=== PATIENT | female | born 1940 | race Caucasian/White ===

== ENCOUNTER → 2018-01-18 15:06 | Outpatient (CLI) | payer MEDICARE, MEDICAID, SELFPAY ==
[2018-01-18 17:50] LABS: Free T4 (Free Thyroxine) 1.14 ng/dl (0.76-1.46); Thyroid Stimulating Hormone 1.21 uIU/ml (0.358-3.740)
[2018-01-20 13:43] LABS: Thyroid Peroxidase Antibodies 10 IU/mL (0-34)
== END ==
PROVIDERS: Visit Provider Otolaryngology
DX: E07.9 Disorder of thyroid, unspecified (principal)
CPT/HCPCS: 36415; 84439; 84443; 86376

== ENCOUNTER → 2018-10-26 10:20 | Outpatient (CLI) | payer MEDICARE, MEDICAID, SELFPAY ==
[2018-10-27 16:54] LABS: Parathyroid Hormone Intact 52 pg/mL (15-65)
[2018-10-30 14:27] LABS: Calcium, Ionized 5.7 mg/dL (4.5-5.6)
== END ==
PROVIDERS: PCP Physician Assistant; Visit Provider Physician Assistant
DX: E83.52 Hypercalcemia (principal)
CPT/HCPCS: 36415; 82330; 83970

== ENCOUNTER → 2021-02-12 07:56 | Outpatient (POV) | payer MEDICARE, MEDICAID, SELFPAY ==
[2021-02-12 08:35] VITALS: BP 160/73; PULSE 75; RESP 18; O2SAT 97; BMI 22.4
--- NOTE | 2021-02-12 09:14 | HMH.PMCON ---
Assessment and Plan (1) Shingles Status: Acute Category: Medical Code(s): B02.9 - Zoster without complications (2) Postherpetic neuralgia Status: Acute Category: Medical Code(s): B02.29 - Other postherpetic nervous system involvement - Assessment and plan all Dx Assessment and Plan for all problems:: Patient was discussed with Dr. Jimenez. Given the patient's symptoms of burning and itching to the area, he would like to proceed with a right occipital nerve block. If she gets relief we will then proceed to the left side. Patient is not on any anticoagulation therapy We will see her back after the injection for further evaluation. Patient has been instructed to contact the clinic with any concerns before the next appointment. Dr. Jimenez has reviewed this note and agrees with this plan of care. This note was dictated using voice recognition software and make contain errors or omissions. HPI - Data of Consult Patient: new to practice Consult date: 02/12/21 Requesting Physician: Nathaly Metcalf APRN - Consult Narrative Reason for consult: Shingles, pain to scalp History of present illness: Ms. Valles is a 81 year old female who presents today for consultation for postherpetic neuralgia. The patient is having burning sensation as well as itching in her neck and scalp area. She has had shingles in the past. She has also had a shingles vaccination with only 1 injection in the past. She says she has had shingles more than once. Most notably, she did have an outbreak following her most recent Covid vaccination. She says shortly after she began to have significant pain in her head as well as in her neck area. She has pain on both sides, however, the pain is worse at this time on the right side. Does say that she has a history of migraines and says that following the coexpressing she also developed significant migraines. The patient has tried gabapentin in the past which caused severe vomiting as well as Lyrica which also caused severe vomiting she has tried hydroxyzine for itching in the past which did not help. Patient is very sensitive to oral medications and does not tolerate oral medicine very well. She is not interested in taking any type of oral medications at this time. Patient does not have a rash today, she says she only has residual pain from the previous breakout. She does report to have chronic neck pain as well due to bulging disks. Today, the patient's pain is a 4 or 5 out of 10. CC: Nathaly Metcalf APRN [facility] History I have reviewed the patient's past medical history: Yes Medical History: Reports:: Gastroesophageal Reflux Disease(GERD), Gastrointestinal Bleed, Hypertension *Have you ever received a pneumonia vaccine?: No *Have you received a flu vaccine this season?: No Other Medical History: Reports: Arthritis Laterality Cases: Bilateral: Other Other Surgeries: Yes: Hysterectomy-Total - *Social History Smoking Status: Never smoker Alcohol Intake: never Substance Use Type: denies use *Occupational Status:: unemployed *Travel in the last 8 weeks: None Family Hx:: Hypertension, Hyperlipidemia, Cancer, Heart Attack, Stroke, Coronary Artery Disease Review of Systems - Review of Systems Review of Systems General: No recent weight changes, no fever, no sleep disturbances Respiratory: No cough, no shortness of air, no recurring pulmonary infections Cardiovascular/peripheral vascular: No chest pain, no palpitations, no edema, no shortness of breath Gastrointestinal: No new onset incontinence, normal bowel movements reported Genitourinary: No new onset incontinence Musculoskeletal: Neck pain, scalp pain worse to right side Psychiatric: [Normal mood/affect] Neurological: [Denies weakness in extremities], [denies balance issues] Meds Home Medications Medication Instructions Recorded Confirmed Type metoprolol succinate 25 mg 25 mg PO DAILY 90 Days 07/06/17 12/14/18 History tablet,e
== END ==
PROVIDERS: Visit Provider Clinical Nurse Specialist Family Health
DX: B02.29 Other postherpetic nervous system involvement (principal)
CPT/HCPCS: 99202; G0463

== ENCOUNTER 2021-02-20 12:26 | Day surgery (SDC) | payer MEDICARE, MEDICAID, SELFPAY ==
[2021-02-20 12:36] VITALS: BP 176/75; PULSE 74; RESP 20; TEMP 36.3; O2SAT 96; BMI 22.2
[2021-02-20 12:52] VITALS: BP 183/88; PULSE 79; RESP 20; O2SAT 97
[2021-02-20 12:55] VITALS: BP 183/85; PULSE 72; RESP 20; O2SAT 95
--- NOTE | 2021-02-20 12:59 | P.PCN_ITS ---
- Procedure Date: 02/20/21 Time: 13:00 Anesthesiologist:: Kathrine Brandon MD Complications:: None Pre-procedure Diagnosis:: Bilateral occipital neuralgia, chronic headaches Post-procedure Diagnosis:: Same Indications for Procedure:: Patient is a very pleasant 81-year-old white female who presents today with chronic headaches related to the above diagnosis. She has tried and failed cons ervative treatment including oral pain medications and home stretching program greater than 6 weeks. The plan for today is for the patient to undergo bilateral occipital nerve block injections. Procedure Details:: Bilateral occipital nerve block Informed consent was obtained and the risk and benefits of the procedure was explained to the patient. The patient was taken to the procedure room. The occiput was cleansed using ChloraPrep. A 25-gauge needle was used first on the left side and advanced until it contacted the left occiput. After negative aspiration we injected 5 mL bupivacaine 0.25% Depo-Medrol 40 mg. The same was done for the right side again advancing a 25-gauge needle until it contacted occiput. After negative aspiration, we injected 5 mL bupivacaine 0.25% and Depo-Medrol 40 mg. Patient tolerated procedure well with no complications. Plan and Disposition:: We will follow-up with this patient in 2 weeks. Will reevaluate pain symptoms at that time.
[2021-02-20 13:03] VITALS: BP 169/79; PULSE 69; RESP 20; O2SAT 95
== END 2021-02-20 13:06 | disposition home or self-care (01) ==
LOC: SC.PAINP 12:30
PROVIDERS: PCP Family Medicine; Visit Provider Anesthesiology Pain Medicine
DX: M54.81 Occipital neuralgia (principal); B02.9 Zoster without complications; I10 Essential (primary) hypertension; K21.9 Gastro-esophageal reflux disease without esophagitis; Z88.6 Allergy status to analgesic agent; Z88.1 Allergy status to other antibiotic agents; Z88.8 Allergy status to other drugs, medicaments and biological substances
CPT/HCPCS: 64450; J1040

== ENCOUNTER → 2021-03-23 09:37 | Outpatient (POV) | payer MEDICARE, MEDICAID, SELFPAY ==
[2021-03-23 10:07] VITALS: BP 146/78; PULSE 67; RESP 20; TEMP 36.6; O2SAT 97; BMI 22.2
--- NOTE | 2021-03-23 10:33 | P.CONS_ITS ---
[facility] Pain Management SOAP Note Subjective:: She is a very pleasant 81-year-old white female who presents today for follow- up. She is currently being treated for chronic headaches related to bilateral occipital neuralgia. She has previously undergone bilateral occipital nerve block injections on February 20, 2021 and notes 100% pain relief in her pain symptoms since undergoing this injection. Today she notes that she has been experiencing some itching over the site of her previous postherpetic lesions the back of her head. She was prescribed clobetasol cream to apply at bedtime which she states is helping with the itching. She is very satisfied with the results from the above injection. She rates her pain today as a 0 out of 10. Objective:: General: Alert and oriented x3, no acute distress, pleasant and cooperative Lungs: Resps E/U, symmetric chest expansion Eyes: PERRL Musculoskeletal: No tenderness to palpation over the bilateral occipital nerve distribution in the posterior aspect of her head. 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 Since she has experienced significant pain relief after undergoing the previous bilateral occipital nerve block injections, I discussed with the patient that we will closely under her symptoms and should the pain recur for any reason we may consider performing repeat injections in the future. We will follow-up with this patient in 4 weeks for reassessment of her chronic pain symptoms. [facility] #[id number] and prior drug screens were reviewed and appropriate. [facility] History Medical History: Reports:: Gastroesophageal Reflux Disease(GERD), Gastrointestinal Bleed, Hyperlipidemia, Hypertension Denies:: Cancer, Diabetes Mellitus Type 2 *Have you ever received a pneumonia vaccine?: Yes *Have you received a flu vaccine this season?: No Other Medical History: Reports: Arthritis, Hypothyroidism Laterality Cases: Bilateral: Arthroscopy Shoulder, Other Other Surgeries: Yes: Appendectomy, Cholecystectomy, Hysterectomy-Total - *Social History Smoking Status: Never smoker Alcohol Intake: never Substance Use Type: denies use *Occupational Status:: retired *Travel in the last 8 weeks: None Family Hx:: Other
== END ==
PROVIDERS: Visit Provider Anesthesiology Pain Medicine
DX: B02.23 Postherpetic polyneuropathy (principal); M54.81 Occipital neuralgia
CPT/HCPCS: 99212; G0463

== ENCOUNTER → 2021-04-20 09:59 | Outpatient (POV) | payer MEDICARE, MEDICAID, SELFPAY ==
[2021-04-20 10:20] VITALS: BP 154/65; PULSE 63; RESP 20; TEMP 35.9; O2SAT 96; BMI 23.2
--- NOTE | 2021-04-20 10:33 | P.CONS_ITS ---
[facility] Pain Management SOAP Note Subjective:: Is a very pleasant 81-year-old white female that presents today for follow-up regarding her postherpetic neuralgia in her scalp. She has had bilateral occipital nerve blocks in the past with significant improvement. However, she is complaining of scalp pain returning to some degree. However not near as bad as it was prior. Patient rates the scalp pain 5/10 at times. She is using a clobetasol 0.05% solution that seems to give her some significant relief. Also, she is requesting repeat injections of the bilateral occipital nerves. I think this would be appropriate. We will call him the clobetasol for refill. Objective:: Is awake alert oriented x3. In no acute distress. Flexion and extension of the cervical spine normal. Range of motion cervical spine normal. Slight tenderness to palpation over the bilateral supple nerve distribution in the posterior aspects of her head. No motor deficit. Gait is normal. Assessment:: Herpes zoster resulting in postherpetic neuralgia and postherpetic polyneuropathy bilateral occipital neuralgia. Plan:: Repeat bilateral occipital nerve block. Refill clobetasol 0.05% solution. We will give her 3 refills. [facility] History Medical History: Reports:: Gastroesophageal Reflux Disease(GERD), Gastrointestinal Bleed, Hyperlipidemia, Hypertension Denies:: Cancer, Diabetes Mellitus Type 2 *Have you ever received a pneumonia vaccine?: Yes *Have you received a flu vaccine this season?: No Other Medical History: Reports: Arthritis, Hypothyroidism Laterality Cases: Bilateral: Arthroscopy Shoulder, Other Other Surgeries: Yes: Appendectomy, Cholecystectomy, Hysterectomy-Total - *Social History Smoking Status: Never smoker Alcohol Intake: never Substance Use Type: denies use *Occupational Status:: retired *Travel in the last 8 weeks: None Family Hx:: Other
== END ==
PROVIDERS: Visit Provider Nurse Anesthetist, Certified Registered
DX: B02.29 Other postherpetic nervous system involvement; M54.81 Occipital neuralgia
CPT/HCPCS: 99212; G0463

== ENCOUNTER 2021-04-24 09:57 | Day surgery (SDC) | payer MEDICARE, MEDICAID, SELFPAY ==
[2021-04-24 10:01] VITALS: BP 126/60; BP 134/64; BP 136/67; BP 153/58; PULSE 77; PULSE 82; PULSE 88; RESP 20; TEMP 36.5; O2SAT 96; BMI 23.2
--- NOTE | 2021-04-24 10:43 | HMH.PMPROC ---
- Procedure Date: 04/24/21 Time: 10:43 Anesthesiologist:: Mike Jimenez MD Complications:: None Pre-procedure Diagnosis:: Bilateral occipital neuralgia Post-procedure Diagnosis:: Same Indications for Procedure:: Patient is a pleasant 81-year-old white female who we are treating for bilateral occipital neuralgia. She is done well with these blocks in the past. Pain is starting to return. We will do repeat bilateral occipital nerve blocks today to see if this helps with her pain symptoms that are returning. Procedure Details:: Bilateral occipital nerve block Informed consent was obtained and the risk and benefits of the procedure was explained to the patient. The patient was taken to the procedure room. The occiput was cleansed using ChloraPrep. A 25-gauge needle was used first on the left side and advanced until it contacted the left occiput. After negative aspiration we injected 5 mL bupivacaine 0.25% Depo-Medrol 40 mg. The same was done for the right side again advancing a 25-gauge needle until it contacted occiput. After negative aspiration, we injected 5 mL bupivacaine 0.25% and Depo-Medrol 40 mg. Patient tolerated procedure well with no complications. Plan and Disposition:: We will follow-up with her in 2 weeks. Will reevaluate symptoms at that time.
== END 2021-04-24 10:33 | disposition home or self-care (01) ==
LOC: SC.PAINP 09:58
PROVIDERS: PCP Family Medicine; Visit Provider Anesthesiology
DX: M54.81 Occipital neuralgia (principal); K21.9 Gastro-esophageal reflux disease without esophagitis; E78.5 Hyperlipidemia, unspecified; I10 Essential (primary) hypertension; E03.9 Hypothyroidism, unspecified; M19.90 Unspecified osteoarthritis, unspecified site; Z90.49 Acquired absence of other specified parts of digestive tract; Z88.2 Allergy status to sulfonamides; Z88.6 Allergy status to analgesic agent; Z88.8 Allergy status to other drugs, medicaments and biological substances
CPT/HCPCS: 64450; J1040

== ENCOUNTER → 2021-05-21 12:43 | Outpatient (POV) | payer MEDICARE, MEDICAID, SELFPAY ==
[2021-05-21 13:15] VITALS: BP 178/76; PULSE 78; RESP 18; TEMP 36.7; O2SAT 96; BMI 23.2
--- NOTE | 2021-05-21 13:30 | HMH.PAINSOAP ---
[facility] Pain Management SOAP Note Subjective:: Patient is a pleasant 81-year-old female who presents today for follow-up after a bilateral occipital nerve block on April 24, 2021. Patient is currently being treated for postherpetic neuralgia. After the procedure, patient had significant relief of 90 to 100%. Rates pain a 0 out of 10. Denies any side effects from any procedures. Today, patient states that she has been having some itchiness only at nighttime. She does use a medication to help with some of these itchiness. She is also complaining of intermittent cloudiness in her vision that has been going on in the last 1 to 2 months. This does resolve on its own. She states that she does get migraine headache from time to time. She takes Fioricet for it prescribed her PCP. She has not seen an eye doctor recently. [facility] #[id number] with an active morphine equivalent of 0. Review of Systems: General: No recent weight changes, no fever, no sleep disturbances Respiratory: No cough, no shortness of air, no recurring pulmonary infections Cardiovascular/peripheral vascular: No chest pain, no palpitations, no edema, no shortness of breath Gastrointestinal: No new onset incontinence, normal bowel movements reported Genitourinary: No new onset incontinence Musculoskeletal: Improving neck pain Psychiatric: [Normal mood/affect] Neurological: [Denies weakness in extremities], [denies balance issues] Objective:: Physical Exam: General: Alert and oriented x3, no acute distress, pleasant and cooperative, [on room air] Lungs: Respirations even and unlabored, symmetrical chest expansion Eyes: PERRL Musculoskeletal: Flexion and extension of [cervical] [spine] somewhat guarded secondary to pain, [antalgic gait noted]; Neurological: Speech clear, no gross sensory deficit Assessment:: Postherpetic neuralgia Plan:: Patient continues to have relief after the bilateral occipital nerve block. Rates pain as 0 out of 10. Patient will follow up with her PCP in regards to her intermittent cloudy vision. I discussed with the patient that this might not be a migraine headache because it does not come with any other symptoms other than the cloudiness. Follow-up in 3 months Patient has been instructed to contact the clinic with any concerns before the next appointment. Dr. Jimenez has reviewed this note and agrees with this plan of care. This note was dictated using voice recognition software and make contain errors or omissions. [facility] History Medical History: Reports:: Gastroesophageal Reflux Disease(GERD), Gastrointestinal Bleed, Hyperlipidemia, Hypertension Denies:: Cancer, Diabetes Mellitus Type 1, Diabetes Mellitus Type 2, MRSA, Seizures *Have you ever received a pneumonia vaccine?: Yes *Have you received a flu vaccine this season?: Yes Other Medical History: Reports: Arthritis, Hypothyroidism Laterality Cases: Bilateral: Arthroscopy Shoulder, Other Other Surgeries: Yes: Appendectomy, Cholecystectomy, Hysterectomy-Total Amputation: No Fractures: No - *Social History Smoking Status: Never smoker Alcohol Intake: never Substance Use Type: denies use *Occupational Status:: retired Housing: house Household Members: other *Travel in the last 8 weeks: None Family Hx:: Other
== END ==
PROVIDERS: Visit Provider Student in an Organized Health Care Education/Training Program
DX: B02.29 Other postherpetic nervous system involvement (principal)
CPT/HCPCS: 99212; G0463

== ENCOUNTER → 2021-08-20 11:36 | Outpatient (POV) | payer MEDICARE, MEDICAID, SELFPAY ==
[2021-08-20 11:46] VITALS: BP 172/71; PULSE 63; RESP 18; TEMP 36.6; O2SAT 97; BMI 22.2
--- NOTE | 2021-08-20 14:55 | HMH.PAINSOAP ---
[facility] Pain Management SOAP Note Subjective:: Patient is a pleasant 81-year-old female who presents today for follow-up. Patient is currently being treated for postherpetic neuralgia, occipital neuralgia. We have been managing this patient with injective therapy and she had significant relief after the bilateral occipital nerve block. Today, she is complaining of itchiness on the left side of her head. She does say that she has some pain associated with this as well. Additionally, patient is being prescribed Fioricet by Dr. Osuna. She states that she is in the process of finding a different provider. She wants to know if we can continue her fioricet. She is stable on this medication. She states that her migraine episodes have decreased since starting this medication. Rates pain today as 5 out of 10. [facility] [id number] with an active morphine equivalent of 0. Review of Systems: General: No recent weight changes, no fever, no sleep disturbances Respiratory: No cough, no shortness of air, no recurring pulmonary infections Cardiovascular/peripheral vascular: No chest pain, no palpitations, no edema, no shortness of breath Gastrointestinal: No new onset incontinence, normal bowel movements reported Genitourinary: No new onset incontinence Musculoskeletal: occiput pain/itchiness Psychiatric: [Normal mood/affect] Neurological: [Denies weakness in extremities], [denies balance issues] Objective:: Physical Exam: General: Alert and oriented x3, no acute distress, pleasant and cooperative Lungs: Respirations even and unlabored, symmetrical chest expansion Eyes: PERRL Musculoskeletal: Non-TTP around the bilateral occiput nerves Skin: There is a flaky white patch of macular lesion around the patient's left parietal lobe that is consistent with a fungal infection. Neurological: Speech clear, no gross sensory deficit Assessment:: Bilateral occipital neuralgia, tinea capitis Plan:: Patient continues to have relief after the oliver occipital nerve block. This has also helped with her migraine episodes. She is complaining of itchiness around the left side of her head. She has tried different shampoos with minimal relief. She is wondering if this is related to her herpetic episodes. Upon exam, there is a patch of flaky macular lesion that is consistent with tinea capitis. I have recommended the pt to use Nizoral shampoo. I also encouraged the pt to establish with PCP. In regards to her occiput pain, we can certainly repeat the oliver occip. nerve block whenever the patient gets this pain again. Patient has been instructed to contact the clinic with any concerns before the next appointment. Dr. Jimenez has reviewed this note and agrees with this plan of care. This note was dictated using voice recognition software and make contain errors or omissions. [facility] History Medical History: Reports:: Gastroesophageal Reflux Disease(GERD), Gastrointestinal Bleed, Hyperlipidemia, Hypertension Denies:: Cancer, Diabetes Mellitus Type 1, Diabetes Mellitus Type 2, MRSA, Seizures *Have you ever received a pneumonia vaccine?: Yes *Have you received a flu vaccine this season?: No Other Medical History: Reports: Arthritis, Hypothyroidism Laterality Cases: Bilateral: Arthroscopy Shoulder, Other Other Surgeries: Yes: Appendectomy, Cholecystectomy, Hysterectomy-Total Amputation: No Fractures: No - *Social History Smoking Status: Never smoker Alcohol Intake: never Substance Use Type: denies use *Occupational Status:: other Housing: house Household Members: other *Travel in the last 8 weeks: None Family Hx:: Other
== END ==
PROVIDERS: Visit Provider Student in an Organized Health Care Education/Training Program
DX: B35.0 Tinea barbae and tinea capitis (principal); M54.81 Occipital neuralgia; M19.90 Unspecified osteoarthritis, unspecified site
CPT/HCPCS: 99212; G0463

== ENCOUNTER 2021-09-03 13:24 | Emergency (ER) | payer MEDICARE, MEDICAID, SELFPAY ==
[2021-09-03 13:21] VITALS: BP 124/76; PULSE 77; RESP 16; TEMP 36.9; O2SAT 94; BMI 23.2
--- NOTE | 2021-09-03 13:31 | XR_ITS ---
FINAL REPORT CLINICAL HISTORY: COVID positive, chest tightness, SOA FINDINGS: A portable view of the chest is obtained. Cardiac and mediastinal silhouettes are normal. The lungs are clear. There is no pleural effusion or pneumothorax. There is dextroscoliosis of the spine. IMPRESSION: No acute process on this portable exam. Reviewed, Interpreted and Dictated by Kaylene Urrutia MD Transcribed by Sharda Murphy Authenticated and [facility]
[2021-09-03 13:41] VITALS: PULSE 78; PULSE 82
--- NOTE | 2021-09-03 13:47 | PC.NURSE ---
at the bedside for eval
--- NOTE | 2021-09-03 13:47 | HMH.EDSOB ---
ED Disposition Clinical Impression: COVID-19 Disposition: Home, Self-Care Condition on Discharge: Good Additional Instructions: follow up as needed, return here for worse Prescriptions: Nirmatrelvir/Ritonavir [Paxlovid 2X150 mg-100 mg (Eua)] 1 each PO BID 5 Days #30 tab Transmission Status: Pending to [id number] Referrals: Provider,Referral, [Primary Care Provider] - - Critical Care Critical Care Time: No Attestation: On 09/03/21, the high probability of a clinically significant, sudden or life threatening deterioration of the following system(s) required my full and direct attention, intervention and personal management. The time I documented below is in addition to time spent performing reported procedures but includes the following listed in this critical care notation. Medical Decision Making - Medical Records Medical records reviewed: Yes: I reviewed the patient's medical records. - [place] Inquiry Pt receiving controlled substance: No Vital Signs: 09/03/21 13:21 09/03/21 13:41 Temperature 98.5 F Temperature Source Oral Pulse Rate 78 Pulse Rate [Right Radial] 77 Respiratory Rate 16 Blood Pressure [Right Arm] 124/76 Blood Pressure Mean [Right Arm] 92 Blood Pressure Source [Right Arm] Automatic Cuff Blood Pressure Position [Right Arm] Sitting 02 Sat by Pulse Oximetry 94 L Oxygen Delivery Method Room Air - Lab Data Lab Results 09/03/21 14:45: Urine Color Yellow, Urine Appearance Clear, Urine pH 6.0, Ur Specific [place] <= 1.005, Urine Protein Negative, Urine Glucose (UA) Negative, Urine Ketones Negative, Urine Blood 1+, Urine Nitrate Negative, Urine Bilirubin Negative, Urine Urobilinogen 0.2, Ur Leukocyte Esterase Negative, Urine WBC Occasional, Ur Squamous Epith Cells Occasional 09/03/21 15:36: WBC 5.6, RBC 4.26, Hgb 12.8, Hct 40.7, MCV 95.6, MCH 30.0, MCHC 31.4 L, RDW 14.0, Plt Count 315, MPV 8.8, Neut % (Auto) 88.4 H, Lymph % (Auto) 8.5 L, [place] % (Auto) 2.7, Eos % (Auto) 0.1, Baso % (Auto) 0.2, Neut # (Auto) 4.9, Lymph # (Auto) 0.5 L, [place] # (Auto) 0.2, Eos # (Auto) 0.0, Baso # (Auto) 0.0 09/03/21 15:36: Sodium 143, Potassium 4.1, Chloride 108 H, Carbon Dioxide 27, Anion Gap 12.1, BUN 15, Creatinine 0.70, Estimated Creat Clear 35, Estimated GFR 80, Est GFR ( Amer) 97, Glucose 167 H, Calcium 10.2, Total Bilirubin 0.3, AST 34, ALT 23, Alkaline Phosphatase 110, Total Protein 6.7, Albumin 4.1, Globulin 2.6, Albumin/Globulin Ratio 1.6 Result diagrams: 09/03/21 15:36 09/03/21 15:36 Orders (Tests/Meds): ED MEDICATIONS Discontinued Medications Generic Name Dose Route Start Last Admin Trade Name Freq PRN Reason Stop Dose Admin Albuterol/Ipratropium 3 ml 09/03/21 13:31 09/03/21 13:41 Ipratropium/Albuterol 3 Ml Neb IH 09/03/21 13:32 3 ml ONCE ONE Administration Belladonna Alkaloids 60 ml 09/03/21 14:55 09/03/21 15:10 Gi Cocktail 60ml Udc PO 09/03/21 14:56 60 ml ONCE ONE Administration ORDERS Category Date Time Status Complete Blood Count Auto Diff Stat Lab 09/03/21 15:36 Results Comprehensive Metabolic Panel Stat Lab 09/03/21 15:36 Results Trop I [Troponin I] Stat Lab 09/03/21 15:36 Results Troponin I Q3H Lab 09/03/21 17:00 Ordered Troponin I Q3H Lab 09/03/21 20:00 Ordered EKG Request [ECG Request by /Tung] Stat Y 09/03/21 13:47 Ordered - ECG Data Tracing #1 I reviewed this ECG and interpreted as documented below: ekg by me nsr, low volt, 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 by RN): Pt states that she tested positive for COVID on 08/30. C/O SOA and tightness in chest today - History of Present Illness 3-4 days covid symptoms, tested
--- NOTE | 2021-09-03 14:35 | PC.NURSE ---
elizabeth hooks assisted to the bathroom for urine sample
--- NOTE | 2021-09-03 14:44 | PC.NURSE ---
Urine sent to lab
--- NOTE | 2021-09-03 14:46 | PC.NURSE ---
Lab is coming to draw blood from pt.
[2021-09-03 14:55] LABS: Microscopic, Urine URINE MICROSCOPIC (MICROSCOPIC)
[2021-09-03 14:57] LABS: Appearance,Urine CLEAR (Clear); Bilirubin,Urine Negative (Negative); Blood, Urine 1+ (Negative); Color,Urine YELLOW (Yellow); Glucose,Urine (UA) Negative (Negative); Ketones,Urine Negative (Negative); Leukocyte Esterase,Urine Negative (Negative); Nitrate,Urine Negative (Negative); Protein,Urine Negative (Negative); Specific Gravity, Urine <= 1.005 (1.005-1.030); Urobilinogen,Urine 0.2 EU/dl (0.2)
--- NOTE | 2021-09-03 14:58 | ECG_ITS ---
APPROVED REPORT Exam: Resting ECG HR:71 bpm ECG Measurements Heart Rate 71 AXES LA 194 P 53 QRSd 82 QRS 12 QT 386 T 10 QTc 409 Conclusion SINUS RHYTHM LOW QRS VOLTAGE IN PRECORDIAL LEADS [QRS DEFLECTION < 1.0 mV IN CHEST LEADS] MINIMAL VOLTAGE CRITERIA FOR LVH, CONSIDER NORMAL VARIANT [MEETS CRITERIA IN ONE OF: R(aVL), S(V1), R(V5), R(V5/V6)+S(V1)] BORDERLINE ECG UNCONFIRMED REPORT Electronically signed by : Feroz Sylvester MD 09/03/2021 21:04:31
[2021-09-03 15:12] LABS: Squamous Epithelial Cell,Urine Occasional #/hpf (0-5); WBC,Urine Occasional #/hpf (0-3)
--- NOTE | 2021-09-03 15:38 | PC.NURSE ---
lab at the bedside for blood draw
[2021-09-03 16:06] LABS: Basophils % 0.2 % (0.1-2.0); Chloride 108 mmol/L (98-107); Eosinophils % 0.1 % (0.1-12.0); Hematocrit 40.7 % (37.0-47.0); Hemoglobin 12.8 g/dL (12.2-16.2); Lymphocytes # 0.5 K/mm3 (0.7-4.5); Lymphocytes % 8.5 % (10-50); Mean Corpuscular HGB Conc 31.4 g/dL (31.8-35.4); Mean Corpuscular Volume 95.6 fl (81-99); Mean Platelet Volume 8.8 fl (7.4-10.4); Monocytes # 0.2 K/mm3 (0.1-1.0); Monocytes % 2.7 % (1.7-9.3); Neutrophils # 4.9 K/mm3 (1.8-7.8); Neutrophils % 88.4 % (37.0-80.0); Platelet Count 315 K/mm3 (142-424); Red Blood Count 4.26 M/mm3 (4.20-5.40); White Blood Count 5.6 K/mm3 (4.8-10.8)
[2021-09-03 16:07] LABS: Potassium 4.1 mmoL/L (3.5-5.1); Sodium 143 mmol/L (136-145)
[2021-09-03 16:09] LABS: Alanine Aminotransferase 23 U/L (12-78); Aspartate Amino Transferase 34 U/L (14-36); Blood Urea Nitrogen 15 mg/dl (7-17); Creatinine Clearance Estimated 35 mL/min (50-200); Estimated Glomerular Filt Rate 80 ml/min (>60); GFR (African American) 97 ML/MIN (>60); MANUAL DIFFERENTIAL MANUAL DIFFERENTIAL (MANUAL DIFF)
[2021-09-03 16:10] LABS: Albumin Level 4.1 g/dl (3.5-5.0); Albumin/Globulin Ratio 1.6 (1.1-1.8); Alkaline Phosphatase 110 U/L (38-126); Anion Gap 12.1 mEq/L (5-15); Bilirubin,Total 0.3 mg/dl (0.2-1.3); Calcium 10.2 mg/dl (8.4-10.2); Carbon Dioxide 27 mmol/L (22.0-30.0); Globulin 2.6 g/dL (1.3-3.2); Glucose 167 mg/dl (74-100); Total Protein,Serum 6.7 g/dl (6.3-8.2)
[2021-09-03 16:25] LABS: Troponin I < 0.01 ng/ml (0.00-0.034)
[2021-09-03 16:35] VITALS: BP 124/72; PULSE 96; RESP 17; TEMP 36.8; O2SAT 98
[2021-09-03 16:46] LABS: Lymphocytes % 10 % (10-50); Monocytes % 6 % (2-9); Neutrophils % 84 % (42-76); Total Cells Counted 100
[2021-09-03 16:48] LABS: Platelet Estimate Normal; RBC Morphology Normal
== END 2021-09-03 16:36 | disposition home or self-care (01) ==
PROVIDERS: Emergency Provider Emergency Medicine
DX: U07.1 COVID-19 (principal); Z79.899 Other long term (current) drug therapy; Z88.1 Allergy status to other antibiotic agents; Z88.2 Allergy status to sulfonamides; Z88.6 Allergy status to analgesic agent; Z88.8 Allergy status to other drugs, medicaments and biological substances; E78.5 Hyperlipidemia, unspecified; I10 Essential (primary) hypertension; K21.9 Gastro-esophageal reflux disease without esophagitis; M19.90 Unspecified osteoarthritis, unspecified site; E03.9 Hypothyroidism, unspecified; Z90.49 Acquired absence of other specified parts of digestive tract
CPT/HCPCS: 71045; 80053; 81001; 84484; 85007; 85025; 93005; 94640; 99283

== ENCOUNTER → 2021-12-17 14:38 | Outpatient (POV) | payer MEDICARE, MEDICAID, SELFPAY ==
[2021-12-17 14:49] VITALS: BP 142/77; PULSE 94; RESP 18; O2SAT 94; BMI 21.2
--- NOTE | 2021-12-17 15:13 | A.OFFVIS_ITS ---
[facility] Pain Management SOAP Note Subjective:: Patient is a pleasant 81-year-old female who presents today for follow-up. We are currently treating the patient for postherpetic neuralgia, occipital neuralgia. Today the patient rates her pain a 0 out of 10. Patient states she still has significant itching at night in her scalp that often wakes her up. Patient states she has done injective therapy in the past that did provide significant relief as well as trying medicated shampoos such as Nizoral shampoo. Patient states she does also use tea tree oil that provides some additional improvements. Patient states she has been prescribed Fioricet by Dr. Osuna in the past for her migraines. Patient states that this has helps with those symptoms. Her Fortunato is [id number]. It is been reviewed and appropriate. Review of Systems: General: No recent weight changes, no fever, no sleep disturbances Respiratory: No cough, no shortness of air, no recurring pulmonary infections Cardiovascular/peripheral vascular: No chest pain, no palpitations, no edema, no shortness of breath Gastrointestinal: No new onset incontinence, normal bowel movements reported Genitourinary: No new onset incontinence Musculoskeletal: Scalp itching/occipital pain Psychiatric: [Normal mood/affect] Neurological: [Denies weakness in extremities], [denies balance issues] Objective:: Physical Exam: General: Alert and oriented x3, no acute distress, pleasant and cooperative Lungs: Respirations even and unlabored, symmetrical chest expansion Eyes: PERRL Musculoskeletal: None TTP around bilateral occipital nerves Neurological: Speech clear, no gross sensory deficit Assessment:: Bilateral occipital neuralgia, tinea capitis, postherpetic neuralgia Plan:: Patient continues to have significant itching along her scalp. I have discussed with the patient regarding trying Vistaril 25 mg at bedtime. I will prescribe a 14-day supply of this medication. Patient does have meclizine in her medication history, I have called and left a message for the patient to confirm if she is still currently taking this medication. Patient will return to clinic in 2 weeks for reevaluation of symptoms and follow-up. Patient has been instructed to contact the clinic with any concerns before the next appointment. Dr. Jimenez has reviewed this note and agrees with this plan of care. This note was dictated using voice recognition software and make contain errors or omissions. PFSH PFSH Social History Smoking Status: Never smoker alcohol intake: never substance use type: denies use current occupational status: retired Travel in the last 8 weeks: None household members: other housing: house caffeine: Yes
== END | disposition home or self-care (01) ==
PROVIDERS: Visit Provider Nurse Practitioner Family
DX: M54.81 Occipital neuralgia (principal); B02.29 Other postherpetic nervous system involvement; B35.0 Tinea barbae and tinea capitis
CPT/HCPCS: 99212; G0463